=== PATIENT | female | born 1970 | race Two or more races ===

== ENCOUNTER 2016-06-03 14:34 | Outpatient (CLI) | payer MEDICAID | END 2016-06-03 14:35 | disposition home or self-care (01) | DX: G47.10 Hypersomnia, unspecified (principal); G47.8 Other sleep disorders; R06.83 Snoring ==

== ENCOUNTER 2016-06-30 19:21 | Outpatient (CLI) | payer MEDICAID | END 2016-06-30 19:22 | disposition home or self-care (01) | DX: G47.10 Hypersomnia, unspecified (principal); G47.8 Other sleep disorders ==

== ENCOUNTER 2016-07-22 10:20 | Outpatient (CLI) | payer MEDICAID | END 2016-07-22 10:21 | disposition home or self-care (01) | DX: R04.0 Epistaxis (principal) ==

== ENCOUNTER 2016-07-29 14:27 | Outpatient (CLI) | payer MEDICAID | END 2016-07-29 14:28 | disposition home or self-care (01) | DX: G47.21 Circadian rhythm sleep disorder, delayed sleep phase type (principal); G47.61 Periodic limb movement disorder; R53.83 Other fatigue ==

== ENCOUNTER 2017-11-10 11:47 | Outpatient (CLI) | payer MEDICAID ==
--- NOTE | 2017-11-12 11:52 | Mammography Report ---
Procedure Date: 11/10/2017 Accession Number: [id number] / [id number] Procedure: MGN - Screening Mammo Dig Bilat CPT Code: FULL RESULT: EXAM: Screening Mammo Dig Bilat DATE: 11/10/2017 12:08 PM CLINICAL HISTORY: Routine screening TECHNIQUE: Bilateral CC, exaggerated CC and MLO views were obtained. COMPARISON: 07/17/2009 FINDINGS: There are scattered fibroglandular densities. No suspicious masses, clustered microcalcifications, skin thickening, or regions of architectural distortion are identified. No significant interval change. IMPRESSION: Negative. RECOMMENDATION: Routine annual screening unless otherwise clinically indicated. BIRADS CATEGORY 1: Negative STANDARD QUALIFYING STATEMENTS: 1. This examination was reviewed with the aid of Computer-Aided Detection (CAD). 2. A negative or benign imaging report should not delay biopsy if clinically suspicious findings are present. Consider surgical consultation if warrented. More than 5% of cancers are not identified by imaging. 3. Dense breasts may obscure an underlying neoplasm.
== END 2017-11-10 11:48 | disposition home or self-care (01) ==
LOC: DI.N 11:47
PROVIDERS: ATTEND Nurse Practitioner
DX: Z12.31 Encounter for screening mammogram for malignant neoplasm of breast (principal)
CPT/HCPCS: 77067

== ENCOUNTER 2018-08-11 10:30 | Outpatient (CLI) | payer MEDICAID ==
--- NOTE | 2018-08-13 06:06 | XRAY Report ---
Reason: toe pain left Procedure Date: 08/11/2018 Accession Number: [id number] / [id number] Procedure: XRN - Toe(s) LT CPT Code: FULL RESULT: EXAM: LEFT TOE RADIOGRAPHY EXAM DATE: 08/11/2018 10:57 AM. CLINICAL HISTORY: Toe pain left. COMPARISON: None. TECHNIQUE: 3 views. FINDINGS: Bones: There is an intra-articular fracture of the middle phalanx of the fifth digit not significantly displaced. The distal and middle phalanges appear fused. Joints: Normal. No subluxations. Soft Tissues: Prominent soft tissue swelling is noted. IMPRESSION: Intra-articular fracture middle phalanx of the fifth toe as described. RADIA
== END 2018-08-11 10:31 | disposition home or self-care (01) ==
LOC: DI.N 10:30
PROVIDERS: ATTEND Nurse Practitioner
DX: S92.525A Nondisplaced fracture of middle phalanx of left lesser toe(s), initial encounter for closed fracture (principal); G62.9 Polyneuropathy, unspecified
CPT/HCPCS: 73660

== ENCOUNTER 2018-12-28 | Outpatient (CLI) | payer MEDICAID | END 2018-12-28 23:59 | disposition home or self-care (01) | DX: E06.3 Autoimmune thyroiditis (principal) ==

== ENCOUNTER 2019-08-02 07:00 | Outpatient (CLI) | payer MEDICAID ==
[2019-08-02 12:11] LABS: BASOPHILS # (AUTO) 0.1 10^3/uL (0.0-0.1); BASOPHILS % (AUTO) 0.8 %; EOSINOPHILS # (AUTO) 0.2 10^3/uL (0.0-0.7); EOSINOPHILS % (AUTO) 3.8 %; HGB - HEMOGLOBIN 11.9 g/dL (12.0-16.0); LYMPHOCYTES # (AUTO) 1.8 10^3/uL (1.5-3.5); LYMPHOCYTES % (AUTO) 28.7 %; MEAN CORPUSCULAR HEMOGLOBIN 25.6 pg (27.0-31.0); MEAN CORPUSCULAR HGB CONC 30.9 g/dL (32.0-36.0); MEAN PLATELET VOLUME 10.5 fL (7.9-10.8); MONOCYTES # (AUTO) 0.3 10^3/uL (0.0-1.0); MONOCYTES % (AUTO) 4.9 %; NEUTROPHILS # (AUTO) 3.8 10^3/uL (1.5-6.6); NEUTROPHILS % (AUTO) 61.6 %; PLT - PLATELET COUNT 262 10^3/uL (130-450); RED BLOOD COUNT 4.64 10^6/uL (4.20-5.40); RED CELL DISTRIBUTION WIDTH 13.3 % (12.0-15.0); WHITE BLOOD COUNT 6.1 x10^3/uL (4.8-10.8)
[2019-08-02 12:54] LABS: THYROID STIMULATING HORMONE 0.53 uIU/mL (0.34-5.60)
[2019-08-02 12:56] LABS: FREE T4 (FREE THYROXINE) 0.61 ng/dL (0.58-1.64)
== END 2019-08-02 23:59 | disposition home or self-care (01) ==
LOC: LAB.N 07:00
PROVIDERS: ATTEND Physician Assistant Medical
DX: E55.9 Vitamin D deficiency, unspecified (principal); R53.83 Other fatigue; E06.3 Autoimmune thyroiditis; R53.81 Other malaise
CPT/HCPCS: 36415; 82306; 82607; 84439; 84443; 85025

== ENCOUNTER 2020-09-25 08:00 | Outpatient (CLI) | payer MEDICAID ==
[2020-09-25 18:11] LABS: BASOPHILS % (AUTO) 0.6 %; EOSINOPHILS # (AUTO) 0.3 10^3/uL (0.0-0.7); EOSINOPHILS % (AUTO) 4.4 %; HCT - HEMATOCRIT 42.3 % (37.0-47.0); HGB - HEMOGLOBIN 13.6 g/dL (12.0-16.0); LYMPHOCYTES # (AUTO) 1.7 10^3/uL (1.5-3.5); LYMPHOCYTES % (AUTO) 25.1 %; MEAN CORPUSCULAR HEMOGLOBIN 27.8 pg (27.0-31.0); MEAN CORPUSCULAR HGB CONC 32.2 g/dL (32.0-36.0); MEAN CORPUSCULAR VOLUME 86.5 fL (81.0-99.0); MEAN PLATELET VOLUME 11.4 fL (7.9-10.8); MONOCYTES # (AUTO) 0.4 10^3/uL (0.0-1.0); MONOCYTES % (AUTO) 6.5 %; NEUTROPHILS # (AUTO) 4.2 10^3/uL (1.5-6.6); NEUTROPHILS % (AUTO) 63.1 %; PLT - PLATELET COUNT 258 10^3/uL (130-450); RED BLOOD COUNT 4.89 10^6/uL (4.20-5.40); RED CELL DISTRIBUTION WIDTH 13.6 % (12.0-15.0); WHITE BLOOD COUNT 6.7 x10^3/uL (4.8-10.8)
[2020-09-25 18:43] LABS: FREE T3 3.41 pg/mL (2.5-3.9)
[2020-09-25 18:48] LABS: ALBUMIN 4.2 g/dL (3.2-5.5); ALBUMIN/GLOBULIN RATIO 1.2 (1.0-2.2); ALKALINE PHOSPHATASE 69 IU/L (42-121); ALT ALANINE AMINOTRANSFERASE 17 IU/L (10-60); AST ASPARTATE AMINOTRANSFERASE 18 IU/L (10-42); BUN - BLOOD UREA NITROGEN 18 mg/dL (6-20); CALCIUM 9.3 mg/dL (8.5-10.3); CARBON DIOXIDE - CO2 25 mmol/L (21-32); CHLORIDE 105 mmol/L (101-111); CHOL/HDL RATIO 4.1 (<4.4); CHOLESTEROL 259 mg/dL; CREATININE 0.8 mg/dL (0.4-1.0); GFR - MDRD 76 (>89); GLUCOSE 90 mg/dL (70-100); HDL CHOLESTEROL 63 mg/dL; LDL CHOLESTEROL,CALCULATED 168 mg/dL; LDL/HDL RATIO 2.7 (<4.4); POTASSIUM 4.6 mmol/L (3.5-5.0); SODIUM 138 mmol/L (135-145); TOTAL PROTEIN 7.8 g/dL (6.7-8.2); TRIGLYCERIDES 140 mg/dL; VLDL CHOLESTEROL 28 mg/dL
[2020-09-25 19:26] LABS: THYROID STIMULATING HORMONE 0.06 uIU/mL (0.34-5.60)
[2020-09-25 20:07] LABS: FREE T4 (FREE THYROXINE) 0.57 ng/dL (0.58-1.64)
== END 2020-09-25 23:59 | disposition home or self-care (01) ==
LOC: LAB.WCP 08:00
PROVIDERS: ATTEND Family Medicine
DX: Z00.00 Encounter for general adult medical examination without abnormal findings (principal); E78.5 Hyperlipidemia, unspecified; E03.9 Hypothyroidism, unspecified
CPT/HCPCS: 36415; 80050; 80061; 83721; 84439; 84481

== ENCOUNTER 2021-01-23 10:47 | Outpatient (CLI) | payer MEDICAID ==
--- NOTE | 2021-01-23 14:15 | XRAY Report ---
PROCEDURE: Shoulder 3 View LT INDICATIONS: SPRAIN OF L SHOULDER TECHNIQUE: 3 views of the shoulder were acquired. COMPARISON: None. FINDINGS: Bones: No fractures or dislocations. Mild acromioclavicular joint and glenohumeral joint osteophyti c changes are seen. No suspicious bony lesions. Visualized ribs appear intact. Soft tissues: No suspicious soft tissue calcifications. IMPRESSION: Mild left shoulder joint osteoarthritis. No fracture or dislocation. No gross soft tissu e abnormality. Reviewed by: Morgan Ceballos MD on 01/23/2021 2:14 PM PDT Approved by: Morgan Ceballos MD on 01/23/2021 2:14 PM PDT Station ID: [id number]
== END 2021-01-23 23:59 | disposition home or self-care (01) ==
LOC: DI.N 10:47
PROVIDERS: ATTEND Nurse Practitioner
DX: S43.402A Unspecified sprain of left shoulder joint, initial encounter (principal); M19.012 Primary osteoarthritis, left shoulder

== ENCOUNTER 2021-02-06 10:13 | Day surgery (SDC) | payer MEDICAID ==
[2021-02-06] MEDS ORDERED: LACTATED RINGERS 1,000 ML IV ONE ×2 (10:52→12:04)
[2021-02-06] MEDS ORDERED: PROPOFOL 200 MG/20 ML VIAL IVP ONE ×2 (11:13→11:44)
[2021-02-06] MEDS ORDERED: MIDAZOLAM 2 MG/2 ML VIAL ONE (11:13)
[2021-02-06] MEDS ORDERED: fentaNYL 100 MCG/2 ML VIAL ONE (11:14)
--- NOTE | 2021-02-06 11:20 | ANESTHESIA ---
Pre-Anesthesia VS, & Labs - Diagnosis screening exam - Procedure colonoscopy Vital Signs: Temp Pulse Resp BP Pulse Ox 36.6 C 81 20 154/88 H 96 02/06/21 10:32 02/06/21 10:32 02/06/21 10:32 02/06/21 10:32 02/06/21 10:32 Height: 5 ft 5.5 in Weight (kg): 96 kg Body Mass Index: 34.7 BMI Classification: Obese - NPO >8 hours - Is Patient ?: No Home Medications and Allergies Home Medications: Ambulatory Orders Cholecalciferol [Vitamin D3] 1 tab ORAL DAILY 02/05/21 Magnesium Oxide [Magnesium] 1 tab ORAL DAILY 02/05/21 Thyroid,Pork [[place] Thyroid] 90 mg PO DAILY 08/18/14 Cholecalciferol [Vitamin D3] 1 tab ORAL DAILY 02/05/21 Magnesium Oxide [Magnesium] 1 tab ORAL DAILY 02/05/21 Allergies/Adverse Reactions: Allergies Allergy/AdvReac Type Severity Reaction Status Date / Time morphine Allergy Respiratory Verified 10/10/13 03:12 Anes History & Medical History - Medical History Cardiovascular: reports: Hypertension Pulmonary: reports: Asthma Gastrointestinal: reports: Chronic diarrhea, Chronic constipation, Other Urinary: reports: None Neuro: reports: None Musculoskeletal: reports: Fibromyalgia Endocrine/Autoimmune: reports: HyPOthyroidism Blood Disorders: reports: None Skin: reports: None Smoking Status: Former smoker (quit 5 years ago) Psychosocial: reports: No issues indicated History of Cancer?: No - Surgical History General: reports: Colonoscopy Gynecologic: reports: section Other Past Surgical History: gastric band Exam General: Alert, Oriented x3, Cooperative, No acute distress Dental: WNL Mouth Openin Fingerbreadth Neck Mobility: Normal Mallampati classification: II Thyromental Distance: 4-6 cm Mental/Cognitive Status: Alert/Oriented X3, Normal for patient Plan Anesthesia Type: Total IV Consent for Procedure(s) Verified and Reviewed: Yes Code Status: Attempt Resuscitation ASA classification: 2-Mild systemic disease Is this case an emergency?: No
[2021-02-06 12:48] VITALS: BP 138/68
--- NOTE | 2021-02-06 20:30 | ANESTHESIA POST OP EVALUATION ---
Anesthesia Post Eval - Post Anesthesia Eval Vitals: Last Vital Signs Temp 36.1 C L 02/06/21 12:45 Pulse 61 02/06/21 12:45 Resp 18 02/06/21 12:45 BP 138/68 H 02/06/21 12:45 Pulse Ox 100 02/06/21 12:45 CV Function Including HR & BP: Stable Pain Control: Satisfactory Nausea & Vomiting: Negative Mental Status: Baseline Respiratory Status: Airway Patent Hydration Status: Satisfactory Anesthesia Complications: None
== END 2021-02-06 10:14 | disposition home or self-care (01) ==
LOC: SDS 10:13
PROVIDERS: ATTEND Surgery
DX: Z12.11 Encounter for screening for malignant neoplasm of colon (principal); K64.8 Other hemorrhoids; K64.4 Residual hemorrhoidal skin tags; Z86.010 Personal history of colon polyps; Z92.83 Personal history of failed moderate sedation; Q43.8 Other specified congenital malformations of intestine; E66.9 Obesity, unspecified; Z68.34 Body mass index [BMI] 34.0-34.9, adult; Z87.891 Personal history of nicotine dependence
CPT/HCPCS: 45378; J7120

== ENCOUNTER 2021-04-24 08:00 | Outpatient (CLI) | payer MEDICAID ==
[2021-04-24 19:16] LABS: THYROID STIMULATING HORMONE 8.36 uIU/mL (0.34-5.60)
[2021-04-24 19:17] LABS: FREE T3 3.06 pg/mL (2.5-3.9)
[2021-04-24 19:18] LABS: FREE T4 (FREE THYROXINE) 0.47 ng/dL (0.58-1.64)
== END 2021-04-24 23:59 ==
LOC: LAB.WCP 08:00
PROVIDERS: ATTEND Family Medicine
DX: E06.3 Autoimmune thyroiditis (principal)
CPT/HCPCS: 36415; 84439; 84443; 84481

== ENCOUNTER 2021-05-29 10:00 | Outpatient (CLI) | payer MEDICAID ==
[2021-05-29 12:37] LABS: THYROID STIMULATING HORMONE 0.47 uIU/mL (0.34-5.60)
[2021-05-29 12:39] LABS: FREE T3 3.37 pg/mL (2.5-3.9); FREE T4 (FREE THYROXINE) 0.63 ng/dL (0.58-1.64)
== END 2021-05-29 23:59 | disposition home or self-care (01) ==
LOC: LAB.WCP 10:00
PROVIDERS: ATTEND Family Medicine
DX: E03.9 Hypothyroidism, unspecified (principal)
CPT/HCPCS: 36415; 81599; 84439; 84443; 84481; 86800

== ENCOUNTER 2022-02-11 08:27 | Outpatient (CLI) | payer MEDICAID | END 2022-02-11 08:28 | disposition short-term general hospital (02) | LOC: EMS 08:27 | DX: I21.19 ST elevation (STEMI) myocardial infarction involving other coronary artery of inferior wall (principal) | CPT/HCPCS: A0425; A0427; A0999 ==

== ENCOUNTER 2022-02-16 23:19 | Emergency (ER) | payer MEDICAID ==
--- NOTE | 2022-02-17 01:05 | ED Physician Documentation ---
History of Present Illness - Stated complaint Stated Complaint: SOA,FATIGUE,LOW BP - Chief complaint Chief Complaint: General - History obtained from History obtained from: Patient - History of Present Illness Timing: Today Pain level max: 0 Pain level now: 0 Improved by: no ameliorating factors Worsened by: no exacerbating factors; notably, not worse with exertion nor standing up - Additonal information Additional information: patient had AK 5 days ago with stent placed in right coronary artery. She previously had only been on a medication for hypothyroidism but since the procedure, she is also on several new medications (lisinopril, metoprolol, clopidrogrel, atorvastatin, and ASA). She presents due to 1-2 days of dyspnea. She cannot describe it specifically, only that she has some abnormal sensation associated with her breathing. She says she feels like her breathing is "shallow", although she does not have difficulty taking deep breaths and does not feel short of air. She denies any pain including chest pain. She says she feels there might be an anxiety component at times. She says her symptoms have no similarity to symptoms of her recent AK Review of Systems Constitutional: reports: Reviewed and negative Cardiac: denies: Chest pain / pressure, Palpitations, Pedal edema, Calf pain Respiratory: reports: Dyspnea. 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 - Present Medications Home Medications: Ambulatory Orders Medication Instructions Recorded Confirmed Thyroid,Pork [[place] Thyroid] 90 mg PO DAILY 08/18/14 02/05/21 Cholecalciferol [Vitamin D3] 1 tab ORAL DAILY 02/05/21 02/05/21 Magnesium Oxide [Magnesium] 1 tab ORAL DAILY 02/05/21 02/05/21 LORazepam [Ativan] 0.5 mg PO TID PRN #14 tablet 02/17/22 - Allergies Allergies/Adverse Reactions: Allergies Allergy/AdvReac Type Severity Reaction Status Date / Time morphine Allergy Respiratory Verified 02/16/22 23:32 - Social History Does the pt smoke?: Yes Smoking Status: Former smoker (quit 5 years ago) Does the pt drink ETOH?: Yes Does the pt have substance abuse?: No - Immunizations Immunizations are current?: Yes - POLST Patient has POLST: No PD ED PE NORMAL - Vitals Vital signs reviewed: Yes - General General: Alert and oriented X 3, No acute distress, Well developed/nourished - Neck Neck: Supple, no meningeal sign - Cardiac Cardiac: RRR, No murmur, No gallop, No rub - Respiratory Respiratory: No respiratory distress, Clear bilaterally - Abdomen Abdomen: Soft, Non tender - Derm Derm: Normal color, Warm and dry - Extremities Extremities: No edema Results - Vitals Vitals: Oxygen O2 Source Room air - EKG (time done) No standard instances Rate: Rate (enter#) (73) Rhythm: NSR [place]: LAD Intervals: Normal ME QRS: Normal Ischemia: Normal ST segments, Q waves (III, aVF, V3, V4) - Labs Labs: Laboratory Tests 02/17/22 02/17/22 02/17/22 02:45 02:45 02:45 WBC 8.5 RBC 4.28 Hgb 12.1 Hct 36.3 L MCV 84.8 MCH 28.3 MCHC 33.3 RDW 13.1 Plt Count 241 MPV 11.0 H Neut # (Auto) 4.8 Lymph # (Auto) 2.7 [place] # (Auto) 0.5 Eos # (Auto) 0.3 Baso # (Auto) 0.0 Absolute Nucleated RBC 0.00 Nucleated RBC % 0.0 Sodium 140 Potassium 3.9 Chloride 106 Carbon Dioxide 27 Anion Gap 7.0 BUN 27 H Creatinine 0.9 Estimated GFR (MDRD) 65 L Glucose 99 Calcium 9.5 B-Natriuretic Peptide 146 H TSH Free T4 Total T3 02/17/22 02/17/22 02:45 02:45 WBC RBC Hgb Hct MCV MCH MCHC RDW Plt Count MPV Neut # (Auto) Lymph # (Auto) [place] # (Auto) Eos # (Auto) Baso # (Auto) Absolute Nucleated RBC Nucleated RBC % Sodium Potassium Chloride Carbon Dioxide Anion Gap BUN Creatinine Estimated GFR (MDRD) Glucose Calcium B-Natriuretic Peptide TSH 0.10 L Free T4 0.57 L Total T3 1.16 - Rads (name of study) chest xray Radiology: Prelim report reviewed, See rad report PD MEDICAL DECISION MAKING - ED course Complexity details: reviewed results, re-evaluated patient, considered dif ferential, d/w patient ED course: Recent AK with stent (RCA per patient), presents with dyspnea that she cannot describe but indicates it is a new and odd sensation for her and associated with her breathing. No acute findings on EKG (Q waves as noted above but no ST changes). Unremarkable chest xray and blood tests. Stable vital signs although some borderline readings ("low-normal") of heart rate (mid 50s at times) and blood pressure (low/mid 90s SBP); these would not be atypical targets for someone with h/o ACS, and notably her symptoms did not correlate with heart rate nor blood pressure during ED stay. Prior to d/c, patient stood up at bedside and there was no significant change in her vital signs and she did not become symptomatic with standing nor ambulating. Regarding her blood tests, hs-cTn was not undertaken; this was partially due to lack of acute findings on EKG, symptoms that do not particularly suggest ACS, but mostly considering that an abnormal result would not have diagnostic value given recent AK. TSH is low although she shows me recent result from other facility which was lower than tonight's result (0.1 today vs 0.025 recently). Her free T4 is 0.57 (low normal is 0.58) and T3 is normal. BNP 146. Results d/w patient, as well as the reassuring findings but unclear cause of her symptoms. We also discussed her heart rate and blood pressures and that they are at a borderline of low-normal. She is to follow up within the next few days with her primary care provider or cross roller for reevaluation. Return precautions discussed. Regarding her concern of possible anxiety component, I offered to prescribe a short course of lorazepam PRN with a dose prior to discharge and she agrees with this. Departure - Departure Disposition: Home, Self Care Clinical Impression: Dyspnea Qualifiers: Dyspnea type: unspecified Qualified Code(s): R06.00 - Dyspnea, unspecified Condition: Good Instructions: ED Dyspnea Shortness of Breath Follow-Up: Kenzie Ramos PA [Primary Care Provider] - Prescriptions: LORazepam [Ativan] 0.5 mg PO TID PRN #14 tablet PRN Reason: Anxiety Comments: The results of tonight's tests are without remarkable/concerning results. Your blood pressures and your heart rate have been at the low end of a normal range but no readings during your ER stay that are alarming. Follow up with your doctor on Friday as scheduled. A short course of lorazepam has been electronically submitted to [facility] in [place]. This medication is to be taken as needed for anxiety, but, as we discussed, I would not attribute your symptoms to anxiety Discharge Date/Time: 02/17/22 04:31
--- NOTE | 2022-02-17 02:02 | XRAY Report ---
PROCEDURE: Chest 2 View X-Ray INDICATIONS: dyspnea TECHNIQUE: 2 view(s) of the chest. COMPARISON: None. FINDINGS: Surgical changes and devices: None. Lungs and pleura: No pleural effusions or pneumothorax. Lungs are clear. Mediastinum: Mediastinal contours are normal. Heart size is normal. Bones and chest wall: No suspicious bony abnormalities. Soft tissues appear unremarkable. IMPRESSION: Normal for age, source of current symptoms is not seen. Reviewed by: Antoni Shields MD on 02/17/2022 2:01 AM PDT Approved by: Antoni Shields MD on 02/17/2022 2:01 AM PDT Station ID: [id number]
[2022-02-17 02:50] LABS: BASOPHILS % (AUTO) 0.5 %; EOSINOPHILS # (AUTO) 0.3 10^3/uL (0.0-0.7); EOSINOPHILS % (AUTO) 3.9 %; HCT - HEMATOCRIT 36.3 % (37.0-47.0); HGB - HEMOGLOBIN 12.1 g/dL (12.0-16.0); LYMPHOCYTES # (AUTO) 2.7 10^3/uL (1.5-3.5); LYMPHOCYTES % (AUTO) 32.3 %; MEAN CORPUSCULAR HEMOGLOBIN 28.3 pg (27.0-31.0); MEAN CORPUSCULAR HGB CONC 33.3 g/dL (32.0-36.0); MEAN CORPUSCULAR VOLUME 84.8 fL (81.0-99.0); MONOCYTES # (AUTO) 0.5 10^3/uL (0.0-1.0); MONOCYTES % (AUTO) 6.3 %; NEUTROPHILS # (AUTO) 4.8 10^3/uL (1.5-6.6); NEUTROPHILS % (AUTO) 56.8 %; PLT - PLATELET COUNT 241 10^3/uL (130-450); RED BLOOD COUNT 4.28 10^6/uL (4.20-5.40); RED CELL DISTRIBUTION WIDTH 13.1 % (12.0-15.0); WHITE BLOOD COUNT 8.5 x10^3/uL (4.8-10.8)
[2022-02-17 03:07] LABS: CALCIUM 9.5 mg/dL (8.5-10.3); CREATININE 0.9 mg/dL (0.4-1.0); POTASSIUM 3.9 mmol/L (3.5-5.0)
[2022-02-17 03:22] LABS: THYROID STIMULATING HORMONE 0.1 uIU/mL (0.34-5.60)
[2022-02-17 03:24] LABS: FREE T4 (FREE THYROXINE) 0.57 ng/dL (0.58-1.64)
[2022-02-17] MEDS ORDERED: LORazepam 0.5 MG TABLET PO STA (04:17)
[2022-02-17 04:24] VITALS: BP 94/60
== END 2022-02-17 04:31 | disposition home or self-care (01) ==
LOC: ED 23:19
DX: R06.09 Other forms of dyspnea (principal); Z87.891 Personal history of nicotine dependence
CPT/HCPCS: 36415; 71046; 80048; 83880; 84439; 84443; 84480; 85025; 93005; 99284; A9270

== ENCOUNTER 2022-02-25 13:08 | Outpatient (CLI) | payer MEDICAID ==
--- NOTE | 2022-02-26 11:51 | Mammography Report ---
BILATERAL DIGITAL SCREENING MAMMOGRAM 3D/2D: 02/25/2022 CLINICAL: Routine screening. Comparison is made to exam dated: 11/10/2017 mammogram - [facility]. There are scattered areas of fibroglandular density in both breasts (category b / 25%-50% glandular t issue). No significant masses, calcifications, or other findings are seen in either breast. There has been no significant interval change. IMPRESSION: NEGATIVE There is no mammographic evidence of malignancy. A 1 year screening mammogram is recommended. Based on the Tyrer Cuzick model (a risk assessment model) the patients lifetime risk is 8.3% and her 10 year risk is 2.2%. According to the ACR, ACS, and NCCN guidelines, an annual breast MRI exam maryam g with mammogram is recommended if the patients lifetime risk is 20% or greater. This exam was interpreted at Station ID: [id number]. NOTE: For mammograms, a report in lay terms will be sent to the patient. Approximately 15% of breast malignancies will not be visualized mammographically. In the management of a palpable breast mass, a negative mammogram must not discourage biopsy of a clinically suspicious lesion. Electronically Signed By: John ca/nilson:02/25/2022 15:27:22 ACR BI-RADS Category 1: Negative 3341F PARENCHYMAL PATTERN: (A) - The breast(s) demonstrate(s) scattered fibroglandular densities. BI-RADS CATEGORY: (1) - 1 RECOMMENDATION: (ANNUAL) - Recommend routine annual screening mammography. [id number] 1 year screening LATERALITY: (B)
== END 2022-02-25 13:09 | disposition home or self-care (01) ==
LOC: DI.N 13:08
PROVIDERS: ATTEND Physician Assistant
DX: Z12.31 Encounter for screening mammogram for malignant neoplasm of breast (principal)

== ENCOUNTER 2022-03-25 09:18 | Outpatient (CLI) | payer MEDICAID ==
[2022-03-25 13:01] LABS: CHOL/HDL RATIO 3.4 (<4.4); CHOLESTEROL 164 mg/dL; HDL CHOLESTEROL 48 mg/dL; LDL CHOLESTEROL,CALCULATED 98 mg/dL; TRIGLYCERIDES 90 mg/dL; VLDL CHOLESTEROL 18 mg/dL
== END 2022-03-25 09:19 | disposition home or self-care (01) ==
LOC: LAB.N 09:18
PROVIDERS: ATTEND Nurse Practitioner Family
DX: I25.10 Atherosclerotic heart disease of native coronary artery without angina pectoris (principal); E78.49 Other hyperlipidemia
CPT/HCPCS: 36415; 80061; 83721

== ENCOUNTER 2022-05-17 10:58 | Outpatient (CLI) | payer MEDICAID ==
--- NOTE | 2022-05-17 12:27 | Ultrasound Report ---
PROCEDURE: Carotid Doppler Complete INDICATIONS: HYPERTENSION TECHNIQUE: Color and pulse Doppler interrogation was performed of both carotid systems, with image documentation and velocity measurements. COMPARISON: None. FINDINGS: Right side: Brachial blood pressure: 105/35 mm Hg. Common carotid artery peak systolic velocity: 91.4 cm/sec. Internal carotid artery peak systolic velocity: 105.7 cm/sec. Internal carotid artery end diastolic velocity: 49.1 cm/sec. External carotid artery peak systolic velocity: 90.3 cm/sec. ICA/CCA peak systolic ratio: 1.2 . Mcnally scale imaging description: Small to moderate atherosclerotic plaque is seen in distal right com mon carotid artery/origin of right internal carotid artery. Percent internal carotid artery stenosis: Less than 50% . Vertebral artery: Flow direction is antegrade. Left side: Brachial blood pressure: 93/45 mm Hg. Common carotid artery peak systolic velocity: 101.4 cm/sec. Internal carotid artery peak systolic velocity: 97.1 cm/sec. Internal carotid artery end diastolic velocity: 36.4 cm/sec. External carotid artery peak systolic velocity: 93.5 cm/sec. ICA/CCA peak systolic ratio: 0.7 . Mcnally scale imaging description: Mild atherosclerotic plaque in distal left common carotid artery is seen. Percent internal carotid artery stenosis: Less than 50%. . Vertebral artery: Flow direction is antegrade. IMPRESSION: Finding is consistent with a less than 50% stenosis in origin of bilateral internal carotid arteries. The estimate of stenosis included in the report of the imaging study was calculated using the NASCET method Reviewed by: Morgan Ceballos MD on 05/17/2022 12:26 PM PST Approved by: Morgan Ceballos MD on 05/17/2022 12:26 PM PST Station ID: [id number]
== END 2022-05-17 10:59 | disposition home or self-care (01) ==
LOC: DI 10:58
PROVIDERS: ATTEND Physician Assistant
DX: I65.23 Occlusion and stenosis of bilateral carotid arteries (principal); E78.5 Hyperlipidemia, unspecified; I10 Essential (primary) hypertension; I25.2 Old myocardial infarction
CPT/HCPCS: 93880

== ENCOUNTER 2022-07-15 08:34 | Outpatient (CLI) | payer MEDICAID ==
[2022-07-18 08:10] LABS: HDL-P (TOTAL) 29.5 umol/L (>=30.5); LDL SIZE 21.7 nm (>20.5); LDL-P 1346 nmol/L (<1000); LP-INSULIN RESISTANCE SCORE <25 (<=45); SMALL LDL-P 383 nmol/L (<=527)
== END 2022-07-15 08:35 | disposition home or self-care (01) ==
LOC: LAB.N 08:34
PROVIDERS: ATTEND Internal Medicine Cardiovascular Disease
DX: E78.5 Hyperlipidemia, unspecified (principal)
CPT/HCPCS: 36415; 81599; 83090; 83695; 83704

== ENCOUNTER 2022-07-29 10:48 | Outpatient (CLI) | payer MEDICAID ==
[2022-07-29 11:31] LABS: THYROID STIMULATING HORMONE < 0.08 uIU/mL (0.34-5.60)
[2022-07-29 11:34] LABS: FREE T3 3.12 pg/mL (2.5-3.9)
[2022-07-29 11:42] LABS: FOLATE 6.29 ng/mL (5.90 - >24.8)
== END 2022-07-29 10:49 | disposition home or self-care (01) ==
LOC: LAB 10:48
PROVIDERS: ATTEND Internal Medicine Cardiovascular Disease
DX: E72.11 Homocystinuria (principal)
CPT/HCPCS: 36415; 82607; 82746; 84207; 84443; 84481

== ENCOUNTER 2022-12-02 11:01 | Outpatient (CLI) | payer MEDICAID ==
[2022-12-02 19:51] LABS: CHOL/HDL RATIO 2.3 (<4.4); CHOLESTEROL 180 mg/dL; HDL CHOLESTEROL 77 mg/dL; LDL CHOLESTEROL,CALCULATED 92 mg/dL; LDL/HDL RATIO 1.2 (<4.4); TRIGLYCERIDES 56 mg/dL; VLDL CHOLESTEROL 11 mg/dL
[2022-12-02 19:55] LABS: THYROID STIMULATING HORMONE 5.99 uIU/mL (0.34-5.60)
[2022-12-02 19:56] LABS: FREE T3 2.89 pg/mL (2.5-3.9)
[2022-12-02 19:57] LABS: FREE T4 (FREE THYROXINE) 0.52 ng/dL (0.58-1.64)
== END 2022-12-02 11:02 | disposition home or self-care (01) ==
LOC: LAB.N 11:01
PROVIDERS: ATTEND Student in an Organized Health Care Education/Training Program
DX: E03.9 Hypothyroidism, unspecified (principal); E78.49 Other hyperlipidemia
CPT/HCPCS: 36415; 80061; 83721; 84439; 84443; 84481

== ENCOUNTER 2023-01-06 08:00 | Outpatient (CLI) | payer MEDICAID ==
[2023-01-06 12:28] LABS: ESTIMATED AVERAGE GLUCOSE 100 mg/dL (70-100); HEMOGLOBIN A1c% 5.1 % (4.27-6.07)
[2023-01-06 12:58] LABS: THYROID STIMULATING HORMONE 0.69 uIU/mL (0.34-5.60)
[2023-01-09 22:07] LABS: METANEPHRINE PLASMA <10.0 pg/mL (0.0-88.0); NORMETANEPHRINE PLASMA 62.6 pg/mL (0.0-244.0)
[2023-01-13 19:07] LABS: ALDOSTERONE 2.5 ng/dL (0.0-30.0)
== END 2023-01-06 08:01 | disposition home or self-care (01) ==
LOC: LAB.N 08:00
PROVIDERS: ATTEND Student in an Organized Health Care Education/Training Program
DX: E27.8 Other specified disorders of adrenal gland (principal)
CPT/HCPCS: 36415; 80299; 81599; 82088; 82533; 82670; 83001; 83002; 83036; 83835; 84244; 84439; 84443

== ENCOUNTER 2023-02-06 18:23 | Outpatient (CLI) | payer MEDICAID ==
--- NOTE | 2023-02-07 09:44 | XRAY Report ---
PROCEDURE: Finger(s) RT INDICATIONS: PAIN IN RIGHT FINGERS TECHNIQUE: AP hand, 2 views of the third finger(s) acquired. COMPARISON: None. FINDINGS: Bones: No fractures or dislocations. No suspicious bony lesions. Soft tissues: No suspicious soft tissue calcifications or masses. IMPRESSION: No acute bony abnormality. Reviewed by: Morgan Ceballos MD on 02/07/2023 9:43 AM PDT Approved by: Morgan Ceballos MD on 02/07/2023 9:43 AM PDT Station ID: [id number]
== END 2023-02-06 18:24 | disposition home or self-care (01) ==
LOC: DI 18:23
PROVIDERS: ATTEND Registered Nurse
DX: M79.644 Pain in right finger(s) (principal)

== ENCOUNTER 2023-04-12 11:59 | Outpatient (CLI) | payer MEDICAID ==
[2023-04-12 19:53] LABS: THYROID STIMULATING HORMONE 0.01 uIU/mL (0.34-5.60)
[2023-04-12 19:56] LABS: ALBUMIN 4.2 g/dL (3.2-5.5); ALBUMIN/GLOBULIN RATIO 1.6 (1.0-2.2); BILIRUBIN,TOTAL 0.6 mg/dL (0.2-1.0); CALCIUM 9.5 mg/dL (8.5-10.3); CREATININE 0.8 mg/dL (0.6-1.3); POTASSIUM 4.2 mmol/L (3.5-4.5); TOTAL PROTEIN 6.8 g/dL (6.4-8.9)
== END 2023-04-12 12:00 | disposition home or self-care (01) ==
LOC: LAB.N 11:59
PROVIDERS: ATTEND Student in an Organized Health Care Education/Training Program
DX: E03.9 Hypothyroidism, unspecified (principal); I10 Essential (primary) hypertension; E78.49 Other hyperlipidemia
CPT/HCPCS: 36415; 80053; 84439; 84443

== ENCOUNTER 2023-04-21 12:27 | Outpatient (CLI) | payer MEDICAID ==
[2023-04-21 18:24] LABS: CHOL/HDL RATIO 2.2 (<4.4); CHOLESTEROL 144 mg/dL; HDL CHOLESTEROL 66 mg/dL; LDL CHOLESTEROL,CALCULATED 51 mg/dL; LDL/HDL RATIO 0.8 (<4.4); TRIGLYCERIDES 134 mg/dL (48-352); VLDL CHOLESTEROL 27 mg/dL
== END 2023-04-21 12:28 | disposition home or self-care (01) ==
LOC: LAB.N 12:27
PROVIDERS: ATTEND Nurse Practitioner
DX: I10 Essential (primary) hypertension (principal); E78.49 Other hyperlipidemia
CPT/HCPCS: 36415; 80061; 83721

== ENCOUNTER 2023-10-09 06:58 | Outpatient (CLI) | payer MEDICAID ==
--- NOTE | 2023-10-09 14:32 | Ultrasound Report ---
PROCEDURE: Abdomen Complete INDICATIONS: ABD PAIN TECHNIQUE: Ultrasound of the abdomen was obtained. COMPARISON: None. FINDINGS: Liver: Hepatic parenchyma is diffusely decreased in attenuation without focal mass lesion. Gallbladder: Sonolucent without cholelithiasis or gallbladder wall thickening. Common bile duct: 4.2 mm Pancreas: Visualized portions of the pancreas are within normal limits Spleen: Spleen is normal in size and homogeneous in echotexture. Kidneys: Kidneys are normal in size and echotexture. No hydronephrosis or renal calculi. No solid masses. Aorta: Visualized aorta is unremarkable without aneurysm. Iliacs: Proximal common iliac arteries are unremarkable. IVC: Intrahepatic inferior vena cava is patent. Other: No free abdominal fluid. IMPRESSION: Unremarkable ultrasound of the abdomen Reviewed by: Rajan Jones MD on 10/09/2023 1:31 PM MAKEDA Approved by: Rajan Jones MD on 10/09/2023 1:31 PM MAKEDA Station ID: [id number]
== END 2023-10-09 06:59 | disposition home or self-care (01) ==
LOC: DI 06:58
PROVIDERS: ATTEND Physician Assistant
DX: R10.13 Epigastric pain (principal); R23.2 Flushing

== ENCOUNTER 2023-10-24 10:19 | Outpatient (CLI) | payer MEDICAID ==
[2023-10-24 11:42] LABS: ESTIMATED AVERAGE GLUCOSE 100 mg/dL (70-100); HEMOGLOBIN A1c% 5.1 % (4.27-6.07)
[2023-10-25 04:09] LABS: INSULIN 11.6 uIU/mL (2.6-24.9)
== END 2023-10-24 10:20 | disposition home or self-care (01) ==
LOC: LAB 10:19
PROVIDERS: ATTEND Obstetrics & Gynecology
DX: E03.9 Hypothyroidism, unspecified (principal); E66.9 Obesity, unspecified
CPT/HCPCS: 36415; 82088; 82627; 82947; 83001; 83002; 83036; 83525; 83835; 84244

== ENCOUNTER 2023-11-10 14:39 | Outpatient (CLI) | payer MEDICAID | END 2023-11-10 14:40 | disposition home or self-care (01) | LOC: LAB 14:39 | PROVIDERS: ATTEND Obstetrics & Gynecology | DX: E55.9 Vitamin D deficiency, unspecified (principal); Z98.84 Bariatric surgery status | CPT/HCPCS: 36415; 82306; 82607 ==